=== PATIENT | female | born 1990 | race Caucasian/White ===

== ENCOUNTER 2023-04-12 07:55 | Day surgery (SDC) | payer OTHER ==
[2023-04-12] MEDS ORDERED: Ringers Lactate 1,000 ML IV ONE (08:28)
[2023-04-12] MEDS ORDERED: SIMETHICONE 40 MG/ 0.6 ML ONE (09:45)
[2023-04-12] MEDS ORDERED: propofoL 200 MG/20 ML VIAL IV ONE ×2 (09:46)
[2023-04-12] MEDS ORDERED: LIDOCAINE 1% MPF 2 ML AMPULE ONE (09:46)
[2023-04-12 11:42] VITALS: BP 153/74; TEMP 97; O2SAT 99
== END 2023-04-12 11:15 | disposition home or self-care (01) ==
LOC: OR 07:55
PROVIDERS: ATTEND Internal Medicine Gastroenterology
PROC: 0DBP8ZX Excision of Rectum, Via Natural or Artificial Opening Endoscopic, Diagnostic (ICD-10-PCS; principal; 2023-04-12 09:15)
DX: K52.9 Noninfective gastroenteritis and colitis, unspecified (principal); K61.1 Rectal abscess; K62.89 Other specified diseases of anus and rectum; K92.1 Melena; I95.9 Hypotension, unspecified; F41.1 Generalized anxiety disorder; F31.9 Bipolar disorder, unspecified; G83.9 Paralytic syndrome, unspecified
CPT/HCPCS: 81025; 88305; 45380; J2704; J7120

== ENCOUNTER 2023-12-26 15:41 | Emergency (ER) | payer OTHER ==
[2023-12-26 17:24] LABS: Absolute Basophils 0.1 K/uL (0-0.5); Absolute Eosinophils 0.1 K/uL (0-0.5); Absolute Lymphocytes (CBC) 2.2 K/uL (0.7-4.9); Absolute Monocytes 1.3 K/uL (0.1-1.3); Absolute Neutrophil 6.4 K/uL (1.8-8.0); Basophils % 0.7 % (0-1.3); Eosinophils % 1.4 % (0-4.4); Hematocrit 24.7 % (36.0-45.0); MCH 28.4 pg (27.0-35.0); MCHC 32.4 g/dL (32.0-36.0); MCV 87.6 fL (80-100); MPV 7.1 fL (7.6-11.3); Monocytes % 13.1 % (3.3-12.3); Neutrophils % 62.8 % (41.7-73.7); Nucleated RBC Absolute Count 0.1 (0-0); Nucleated Red Blood Cells % 0.5 % (0-0); Platelets 314 thou/uL (152-406); RBC Red Blood Cell Count 2.82 M/uL (3.86-4.86); Red Cell Distribution Width 31.2 % (12.1-15.2)
[2023-12-26 17:36] LABS: ALT/SGPT 16 U/L (13-56); Alkaline Phosphatase 175 U/L (45-117); Anion Gap 6.8 mEq/L (5.0-15.0); BUN Blood Urea Nitrogen 6 mg/dL (7-18); Bicarbonate 30 mEq/L (21-32); Bilirubin Total 0.3 mg/dL (0.2-1.0); Glomerular Filtration Rate 138 ml/min (=/>90); Glucose Level 91 mg/dL (74-106); Potassium 3.8 mEq/L (3.5-5.1); Sodium Level 135 mEq/L (136-145)
[2023-12-26 17:37] LABS: AST/SGOT < 10 U/L (15-37); Albumin 2.3 g/dL (3.4-5.0); Albumin/Globulin Ratio 0.5 (1.1-1.8); Globulin 4.2 g/dL (2.3-3.5); Lipase 38 U/L (13-75); Protein, Total 6.5 g/dL (6.4-8.2)
[2023-12-26 18:03] LABS: Anisocytosis 3+; Blood Morphology Comment NOTED (NOT SEEN); Platelet Estimate ADEQ; White Blood Cell Scan OK (OK)
[2023-12-26 18:22] LABS: Renal Epithelial <5 /HPF (None Seen); Specific Gravity 1.006 (1.005-1.030); Specific Gravity 1.007 (1.005-1.030); Sqamous Epithelial <5 /HPF (None Seen); Urine Bacteria >50 /HPF (<20); Urine Bilirubin NEGATIVE (Negative); Urine Blood 3+ (Negative); Urine Clarity Extremely Turbid (Clear); Urine Color Light-Yellow (Yellow); Urine Culture Reflex Order REFLEXED; Urine Glucose NEGATIVE (Negative); Urine Ketones NEGATIVE (Negative); Urine Microscopic Reflex YN ORDER UMIC; Urine Nitrite NEGATIVE (Negative); Urine Protein TRACE (Negative); Urine Urobilinogen Normal (Normal); Urine WBC >50 /HPF (<5); Urine WBC Clump Occasional /HPF (None Seen); Urine pH 7.5 (5.0-7.0)
--- NOTE | 2023-12-26 19:17 | RAD REPORT ---
EXAM DESCRIPTION: CT - Abdomen Pelvis W Contrast - 12/26/2023 6:44 pm CLINICAL HISTORY: ABDOMINAL DISTENTION COMPARISON: Chest Abd Pelvis Wo Con dated 11/16/2023 TECHNIQUE: Thin cut axial CT imaging of the abdomen and pelvis was performed following intravenous a dministration of iodinated contrast. Multiplanar reformats were generated and reviewed. All CT scans are performed using dose optimization technique as appropriate and may include automated exposure control or mA/KV adjustment according to patient size. FINDINGS: No suspicious findings in the lung bases. Mild bibasilar atelectatic changes again noted. The liver shows stable hepatomegaly. Wedge-shaped heterogeneous hypoattenuating subcapsular region in the peripheral inferior right lobe was not discretely visualized previously and could relate to a re gion of differential enhancement. Spleen, adrenal glands, and pancreas show no suspicious findings. G allbladder is decompressed limiting evaluation. Symmetric renal function is seen with no hydronephrosis or suspicious renal mass. Left lower quadrant colostomy with adjacent parastomal hernia containing a segment of the transverse colon wall is stable. A small collection measuring 3.8 x 3.6 cm along the inferior margin of the cullen ia is stable although appears better demarcated today. No dilated bowel loops or bowel wall thickening. Sequelae of partial colectomy with Tone's pouch and left lower quadrant colostomy creation. No free air, free fluid or inflammatory stranding. Bilate ral inguinal small lymph nodes, mildly prominent, stable. Sacral decubitus ulcer again seen. No herni a, mass or other bulky lymphadenopathy. The urinary bladder is decompressed with Lorenzana catheter in pl noel. No suspicious bony findings. IMPRESSION: Parastomal hernia, with overall stable adjacent fluid collection measuring up to 3.8 cm at its inferior margin, suggesting a probable seroma. Otherwise stable findings including megaly. Wedge-shaped region of hypoenhancement along the peripher al right inferior liver lobe is nonspecific and may relate to transient enhancement differences. Sacral decubitus ulcer again seen. Mildly prominent inguinal lymph nodes without significant interval change, favored to be reactive.
--- NOTE | 2023-12-26 19:29 | ER ---
Nurse's Notes [facility] Name: Sejal Pierre Age: 33 yrs Sex: Female : 1990 Arrival Date: 12/26/2023 Time: 15:41 Bed 15 Private MD: Diagnosis: Leakage of urinary (indwelling) catheter;UTI/ Urinary tract infection, site not specified;Postprocedural seroma of a digestive system organ or structure following other procedure;Unilateral inguinal hernia, without obstruction or gangrene Presentation: 12/25 15:55 Chief complaint: EMS states: From [facility], refereed here rs5 by primary care for abdominal mass noted 4 days ago and for leaking urinary catheter. 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 Coronavirus screen: At this time, the client does not indicate any symptoms associated with coronavirus-19. Ebola Screen: No symptoms or risks identified at this time. Risk Assessment: Do you want to hurt yourself or someone else? Patient reports no desire to harm self or others. Onset of symptoms was December 26, 2023. 15:55 Method Of Arrival: EMS: [facility] rs5 15:55 Acuity: EMELIA 3 rs5 16:01 Initial Sepsis Screen: Does the patient meet any 2 criteria? No. Patient's initial rs5 sepsis screen is negative. Does the patient have a suspected source of infection? No. Patient's initial sepsis screen is negative. 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 - Infectious Disease History:: Denies. - Social history:: Smoking status: Patient denies any tobacco usage or history of. Screenin:47 [facility] ED Fall Risk Assessment (Adult) History of falling in the last 3 months, rs5 including since admission No falls in past 3 months (0 pts) Confusion or Disorientation No (0 pts) Intoxicated or Sedated No (0 pts) Impaired Gait No (0 pts) Mobility Assist Device Used No (0 pt) Altered Elimination No (0 pt) Score/Fall Risk Level 0 - 2 = Low Risk Oriented to surroundings, Maintained a safe environment. Abuse screen: Denies threats or abuse. Nutritional screening: No deficits noted. Tuberculosis screening: No symptoms or risk factors identified. Assessment: 15:44 General: Appears in no apparent distress. uncomfortable, Behavior is calm, cooperative. rs5 Pain: Denies pain. Neuro: Level of Consciousness is awake, alert, obeys commands, Oriented to person, place, time, situation. Cardiovascular: Patient's skin is warm and dry. Respiratory: Airway is patent Respiratory effort is even, unlabored, Respiratory pattern is regular, symmetrical. GI: Abdomen is round non-distended, Colostomy site is clean and dry. Ostomy appliance is intact. : Lorenzana in place to gravity drainage Urine is cloudy. EENT: No signs and/or symptoms were reported regarding the EENT system. Derm: Skin is intact, Skin is pink, warm \\T\\ dry. Musculoskeletal: Range of motion: intact in arms bilat pt states "i am a paraplegic and I can only move my arms, not my legs". 15:44 Reassessment: stage 3 sacral wound noted to sacrum. small wounds noted to tips of toes. rs5 swelling to lower extremities bilat . 16:52 Reassessment: Patient and/or family updated on plan of care and expected duration. Pain rs5 level reassessed. Patient is alert, oriented x 3, equal unlabored respirations, skin warm/dry/pink. 18:04 Reassessment: Patient and/or family updated on plan of care and expected duration. Pain rs5 level reassessed. Patient is alert, oriented x 3, equal unlabored respirations, skin warm/dry/pink. 19:00 Reassessment:. General: Appears in no apparent distress. Behavior is calm, cooperative. al5 Pain: Denies pain. Neuro: Level of Consciousness is awake, alert, obeys commands, Oriented to person, place, time, situation. Cardiovascular: Patient's skin is warm and dry. Respiratory: Airway is patent Respiratory effort is even, unlabored, Respiratory pattern is regular, symmetrical. GI: Abdomen is round non-distended, Colostomy site is clean and dry. is intact. : Lorenzana in place to gravity drainage Urine is cloudy. EENT: No signs and/or symptoms were reported regarding the EENT system. Derm: Skin is intact, Skin is pink, warm \\T\\ dry. normal. Musculoskeletal: No signs and/or symptoms reported regarding the musculoskeletal system. 19:48 Reassessment: gave nurse to nurse report to TAWANA patino at [place] [id number] about discharge home. pending discharge upon EMS arrival. 20:34 Reassessment: ems arrived, patient discharge back to [facility] via [place] [id number] [facility]. Vital Signs: 16:01 BP 101 / 53; Pulse 80; Resp 18; Temp 98.5; Pulse Ox 95% on R/A; rs5 16:55 BP 105 / 56; Pulse 93; Resp 17; Pulse Ox 94% on R/A; rs5 18:48 BP 99 / 51; Pulse 90; Resp 17; Pulse Ox 98% on R/A; rs5 19:30 BP 101 / 54; Pulse 86; Resp 16; Pulse Ox 96% on R/A; al5 20:34 BP 101 / 52; Pulse 85; Resp 16; Pulse Ox 97% on R/A; pc2 ED Course: 15:44 Patient arrived in ED. rs5 15:47 Mara Kyle MD is Attending Physician. gb1 15:47 Patient has correct armband on for positive identification. Placed in gown. Bed in low rs5 position. Call light in reach. Side rails up X2. 15:47 No provider procedures requiring assistance completed. rs5 15:54 Roland Cleveland RN is Primary Nurse. rs5 15:55 Inserted saline lock: 20 gauge in left antecubital area, using aseptic technique. Blood rs5 collected. Flushed with 10 mL NS. 15:56 Triage completed. rs5 17:58 Lorenzana cath inserted, using sterile technique, by ak, balloon inflated, to gravity zm drainage, returned cloudy urine. Patient tolerated well. 24 FR. 18:46 CT Abd/Pelvis - IV Contrast Only In Process Unspecified. EDMS 19:27 Lauri Shepard MD is Referral Physician. gb1 19:28 Dressings: replaced midline dressing to L upper arm using sterile technique, patient al5 tolerated well. 19:29 Arm band placed on right wrist. al5 19:29 Provided Education on: midline dressing change, processes and procedures. al5 19:50 IV discontinued, intact, bleeding controlled, No redness/swelling at site. Pressure al5 dressing applied, removed 20G LAC iv. Administered Medications: No medications were administered Medication: 16:33 VIS not applicable for this client. rs5 Output: 20:34 Urine: 300ml (Voided); Total: 300ml. pc2 Outcome: 19:28 Discharge ordered by . gb1 20:34 Discharged to home via ambulance, al5 20:34 Condition: good 20:34 Discharge instructions given to patient, Instructed on discharge instructions, follow up and referral plans. medication usage, Demonstrated understanding of instructions, follow-up care, medications, Prescriptions given X 1, 20:35 Patient left the ED. al5 Signatures: Dispatcher [employer] EDMS Cristy Shepard Ricky, RN RN rs5 Mara Kyle MD MD gb1 Denise Cox RN RN al5 Perla Alcantara, RN RN pc2 Corrections: (The following items were deleted from the chart) 16:04 15:55 Chief complaint: EMS states: [facility] [place] [facility] refereed rs5 here by primary care for abdominal mass noted 4 days ago rs5 16:04 16:04 PMHx: osteomylitis of vertebra; rs5 rs5 16:04 16:04 PSHx: None; rs5 rs5 16:56 16:01 BP 101 / 53; Pulse 80bpm; Resp 18bpm; Pulse Ox 99% RA; Temp 98.5F; rs5 rs5 19:53 19:48 Reassessment: gave nurse to nurse report to TAWANA patino at [address] about discharge home. al5
--- NOTE | 2023-12-26 19:29 | EDPHYS ---
Physician Documentation [facility] Name: Sejal Pierre Age: 33 yrs Sex: Female : 1990 Arrival Date: 12/26/2023 Time: 15:41 Bed 15 Private MD: ED Physician Mara Kyle HPI: 12/25 19:14 This 33 yrs old Female presents to ER via EMS with complaints of ABDOMINAL gb1 MASS, LEAKING URINARY CATHETHER. 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 - Infectious Disease History:: Denies. - Social history:: Smoking status: Patient denies any tobacco usage or history of. Exam: 19:14 Constitutional: This is a well developed, well nourished patient who is awake, alert, gb1 and in no acute distress. Head/Face: Normocephalic, atraumatic. Eyes: Pupils equal round and reactive to light, extra-ocular motions intact. Lids and lashes normal. Conjunctiva and sclera are non-icteric and not injected. Cornea within normal limits. Periorbital areas with no swelling, redness, or edema. ENT: Nares patent. No nasal discharge, no septal abnormalities noted. Tympanic membranes are normal and external auditory canals are clear. Oropharynx with no redness, swelling, or masses, exudates, or evidence of obstruction, uvula midline. Mucous membranes moist. Neck: Trachea midline, no thyromegaly or masses palpated, and no cervical lymphadenopathy. Supple, full range of motion without nuchal rigidity, or vertebral point tenderness. No Meningismus. Chest/axilla: Normal chest wall appearance and motion. Nontender with no deformity. No lesions are appreciated. Cardiovascular: Regular rate and rhythm with a normal S1 and S2. No gallops, murmurs, or rubs. Normal PMI, no JVD. No pulse deficits. Respiratory: Lungs have equal breath sounds bilaterally, clear to auscultation and percussion. No rales, rhonchi or wheezes noted. No increased work of breathing, no retractions or nasal flaring. Abdomen/GI: Soft, tender, with normal bowel sounds. Mild tender distension around colostomy site (with formed brown stool). + guarding at area of distension, no rebound. Female : +urinary catheter is leaking foul smelling urine Skin: Warm, dry with normal turgor. Normal color with no rashes, no lesions, and no evidence of cellulitis. Vital Signs: 16:01 BP 101 / 53; Pulse 80; Resp 18; Temp 98.5; Pulse Ox 95% on R/A; rs5 16:55 BP 105 / 56; Pulse 93; Resp 17; Pulse Ox 94% on R/A; rs5 18:48 BP 99 / 51; Pulse 90; Resp 17; Pulse Ox 98% on R/A; rs5 19:30 BP 101 / 54; Pulse 86; Resp 16; Pulse Ox 96% on R/A; al5 20:34 BP 101 / 52; Pulse 85; Resp 16; Pulse Ox 97% on R/A; pc2 MDM: 15:47 Patient medically screened. gb1 19:14 Data reviewed: vital signs, nurses notes, lab test result(s), CBC, electrolytes, gb1 urinalysis, radiologic studies, CT scan. 19:24 ED course: 33-year-old female here with history of paraplegia, colostomy with gb1 indwelling Lorenzana catheter here with left lower quadrant pain around her colostomy site. There appears to be an area that is herniated but also with a seroma surrounding the inferior aspect of the colostomy. I recommend general surgery outpatient evaluation for follow-up. Patient also has a UTI and I will prescribe antibiotics. I will review the patient's urine culture and try to tailor antibiotics based on the last sensitivities. Patient does not at this time appear septic or show any signs of peritonitis. I reviewed the patient's urine culture from November of last year and it shows colonies of mixed abdulkadir. I will prescribe Keflex Bactrim for the patient's UTI and give her explicit return precautions. She is afebrile and at this time I doubt acute pyelonephritis or infected ureteral stone.. 12/25 17:00 Order name: CBC with Diff; Complete Time: 18:31 gb1 12/25 17:00 Order name: CMP; Complete Time: 17:48 gb1 12/25 17:00 Order name: Lipase; Complete Time: 17:48 gb1 12/25 17:00 Order name: Test, Urine; Complete Time: 18:31 gb1 12/25 17:00 Order name: Urinalysis w/ reflexes; Complete Time: 18:31 gb1 12/25 19:20 Interpretation: Within normal limits. gb1 12/25 17:29 Order name: CBC Smear Scan; Complete Time: 18:31 EDGA 12/25 18:29 Order name: Urine Culture EDGA 12/25 17:00 Order name: CT Abd/Pelvis - IV Contrast Only; Complete Time: 19:19 gb1 12/25 17:00 Order name: IV Saline Lock; Complete Time: 18:44 gb1 12/25 17:00 Order name: Labs collected and sent; Complete Time: 18:44 gb1 Administered Medications: No medications were administered Disposition Summary: 12/26/23 19:28 Discharge Ordered Notes: Location: Home gb1 Condition: Stable gb1 Diagnosis - Leakage of urinary (indwelling) catheter gb1 - UTI/ Urinary tract infection, site not specified gb1 - Postprocedural seroma of a digestive system organ or structure following other gb1 procedure - Unilateral inguinal hernia, without obstruction or gangrene gb1 Followup: gb1 - With: Lauri Shepard MD - When: - Reason: Recheck today's complaints Discharge Instructions: - Discharge Summary Sheet gb1 - Urinary Tract Infection, Adult gb1 Forms: - Medication Reconciliation Form gb1 - Antibiotic Education gb1 - Prescription Opioid Use gb1 - Patient Portal Instructions gb1 - Leadership Thank You Letter gb1 Prescriptions: - Bactrim DS 800-160 mg Oral Tablet - take 1 tablet ORAL route every 12 hours for 7 days; 14 tablet; Refills: 0, gb1 Product Selection Permitted Signatures: Dispatcher [employer] Roland Rosen RN RN rs5 Mara Kyle MD MD gb1 Corrections: (The following items were deleted from the chart) 16:04 16:04 PMHx: osteomylitis of vertebra; rs5 rs5 16:04 16:04 PSHx: None; rs5 rs5 17:01 17:01 CBC+H.LAB.BRZ ordered. EDMS EDMS 17:01 17:01 COMPREHENSIVE METABOLIC PANEL+C.LAB.BRZ ordered. EDMS EDMS 17:01 17:01 LIPASE+C.LAB.BRZ ordered. EDMS EDMS 17:01 17:01 Test, Urine+UC.LAB.BRZ ordered. EDMS EDMS 17:01 17:01 Urinalysis+U.LAB.BRZ ordered. EDMS EDMS 17:01 17:01 Abdomen Pelvis W Con+CT.RAD.BRZ ordered. EDMS EDMS 19:20 19:20 Within normal limits. gb1 gb1 19:20 19:20 Abnormal. gb1 gb1 19:30 19:24 ED course: 33-year-old female here with history of paraplegia, colostomy with gb1 indwelling Lorenzana catheter here with left lower quadrant pain around her colostomy site. There appears to be an area that is herniated but also with a seroma surrounding the inferior aspect of the colostomy. I recommend general surgery outpatient evaluation for follow-up. Patient also has a UTI and I will prescribe antibiotics. I will review the patient's urine culture and try to tailor antibiotics based on the last sensitivities. Patient does not at this time appear septic or show any signs of peritonitis.. gb1
[2023-12-26 21:12] VITALS: TEMP 98.5
[2023-12-26 21:20] VITALS: BP 101/52; O2SAT 97
== END 2023-12-26 20:35 | disposition home or self-care (01) ==
LOC: ER 15:41
DX: T83.038A Leakage of other urinary catheter, initial encounter (principal); N39.0 Urinary tract infection, site not specified; K91.873 Postprocedural seroma of a digestive system organ or structure following other procedure; K40.90 Unilateral inguinal hernia, without obstruction or gangrene, not specified as recurrent; G82.20 Paraplegia, unspecified
CPT/HCPCS: 87088; 85025; 81001; 87086; 36415; 81025; 83690; 80053; 74177; Q9967

== ENCOUNTER 2024-06-07 22:30 | Emergency (ER) | payer OTHER ==
[2024-06-07] MEDS ORDERED: ACETAMINOPHEN 650MG/RECT SUPP PR ONE (23:04)
[2024-06-07] MEDS ORDERED: HYDROCORTISONE SUC 100 MG INJ ONE (23:04)
[2024-06-07] MEDS ORDERED: FAMOTIDINE 20 MG/2 ML VIAL IV ONE (23:04)
[2024-06-07] MEDS ORDERED: VANCOMYCIN 1 GM/VIAL ONE (23:04)
[2024-06-07] MEDS ORDERED: NA CHLORIDE 0.9% 250 ML ONE (23:04)
[2024-06-07] MEDS ORDERED: VANCOMYCIN 500 MG/VIAL ONE (23:04)
[2024-06-07] MEDS ORDERED: NA CHLORIDE 0.9% 3,000 ML ONE (23:05)
[2024-06-07] MEDS ORDERED: NA CHLORIDE 0.9% 100 ML ONE (23:05)
[2024-06-07] MEDS ORDERED: Meropenem 1000 MG/VIAL IV ONE (23:07)
[2024-06-07 23:17] LABS: Absolute Lymphocytes (CBC) 0.7 K/uL (0.7-4.9); Absolute Monocytes 0.6 K/uL (0.1-1.3); Absolute Neutrophil 10.2 K/uL (1.8-8.0); Basophils % 0.2 % (0-1.3); Hematocrit 27.8 % (36.0-45.0); Lymphocytes % 6.3 % (15.3-44.8); MCH 29.7 pg (27.0-35.0); MCHC 32.5 g/dL (32.0-36.0); MCV 91.4 fL (80-100); MPV 7.2 fL (7.6-11.3); Monocytes % 5.3 % (3.3-12.3); Neutrophils % 88.2 % (41.7-73.7); Platelets 536 thou/uL (152-406); RBC Red Blood Cell Count 3.04 M/uL (3.86-4.86); Red Cell Distribution Width 17.9 % (12.1-15.2)
[2024-06-07 23:28] LABS: PTT, Activated Partial Thromb 38.6 SECONDS (24.3-36.9); Protime INR 1.53
[2024-06-07 23:34] LABS: SARS-CoV-2 Antigen CONTROL BLUE LINE VIS/BG OK; SARS-CoV-2 Antigen Rapid Res Negative (Negative)
[2024-06-07 23:45] LABS: AST/SGOT 11 U/L (15-37); Alkaline Phosphatase 165 U/L (45-117); Anion Gap 10.9 mEq/L (5.0-15.0); BUN Blood Urea Nitrogen 6 mg/dL (7-18); Bicarbonate 25 mEq/L (21-32); Bilirubin Direct 0.2 mg/dL (0-0.2); Bilirubin Indirect, Calculated 0.1 mg/dL (0.2-0.8); Bilirubin Total 0.3 mg/dL (0.2-1.0); Glomerular Filtration Rate 133 ml/min (=/>90); Glucose Level 98 mg/dL (74-106); Lipase 8 U/L (13-75); Magnesium 1.8 mg/dL (1.6-2.4); NT PRO-BNP 1411 pg/mL (<125); Potassium 2.9 mEq/L (3.5-5.1); Protein, Total 4.5 g/dL (6.4-8.2); Sodium Level 138 mEq/L (136-145)
[2024-06-07 23:55] LABS: ALT/SGPT < 14 U/L (13-56); Albumin < 0.9 g/dL (3.4-5.0); Albumin/Globulin Ratio ND (1.1-1.8); Globulin 3.6 g/dL (2.3-3.5); Troponin High Sensitivity < 3.0 pg/mL (<58.9)
--- NOTE | 2024-06-08 01:48 | EDPHYS ---
Physician Documentation [facility] Name: Sejal Pierre Age: 34 yrs Sex: Female : 1990 Arrival Date: 06/07/2024 Time: 22:30 Bed 4 Private MD: ED Physician Suraj Palencia HPI: 06/08 01:36 This 34 yrs old Female presents to ER via EMS with complaints of Fever, preethi Altered Mental Status. 01:36 The patient reports fever, that was measured at 103 degrees Fahrenheit. Onset: The preethi symptoms/episode began/occurred yesterday. Modifying factors: there are no obvious modifying factors. Associated signs and symptoms: Pertinent positives: cough, nausea. Severity of symptoms: At their worst the symptoms were severe in the emergency department the symptoms are unchanged. 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 22:57 unknown bm8 Historical: - Allergies: 22:40 Codeine; bm8 22:40 Latex; bm8 - Home Meds: 22:40 ascorbic acid (vitamin C) 500 mg oral tablet 1 tabs 2 times per day [Active]; aspirin bm8 81 mg Oral capsule 1 cap daily [Active]; baclofen 20 mg Oral tablet 1 tab 3 times per day [Active]; buspirone 10 mg Oral tablet 2 tabs 2 times per day for generalized anxiety disorder [Active]; docusate sodium 100 mg Oral tablet 1 tabs daily [Active]; ferrous sulfate 325 mg (65 mg iron) Oral tablet 1 tab 2 times per day for iron deficiency anemia [Active]; fluticasone propionate 50 mcg/actuation intranasal spray, suspension 1 spray daily [Active]; lactulose 10 gram/15 mL Oral solution 15 mL daily [Active]; pregabalin 150 mg Oral capsule 1 cap 3 times per day [Active]; midodrine 5 mg oral tablet 3 tab q6hrs for symptomatic orthostatic hypotension [Active]; mirtazapine 15 mg Oral tablet 2 tabs daily [Active]; norethindrone (contraceptive) 0.35 mg oral tablet 1 tab daily [Active]; nystatin 100,000 unit/gram Topical cream 1 application 2 times per day [Active]; omeprazole 20 mg Oral capsule,delayed release (e.c.) 1 caps daily [Active]; Zofran 1 tab Oral 4 mg every 6 hours [Active]; oxycodone-acetaminophen 10-325 mg Oral tablet 1 tab every 8 hours for pain [Active]; Risperdal 1 mg Oral tablet 1 tab every day at bedtime [Active]; spironolactone 25 mg Oral tablet 1 tab daily [Active]; zinc sulfate 50 mg zinc (220 mg) Oral tablet 1 tab daily [Active]; - PMHx: 22:40 Anxiety; Gastroesophageal reflux disease; Hypertensive disorder; Hypokalemia; morbid bm8 obesity; osteomylitis of vertebra; osteomylitis of vertebra; osteomylitis of vertebra; osteomylitis of vertebra; Paraplegia; osteomylitis of vertebra; - PSHx: 22:40 back surgery; bm8 - Immunization history:: Adult Immunizations unknown. - Infectious Disease History:: unk. - Social history:: Smoking status: Patient denies any tobacco usage or history of. Patient/guardian denies using alcohol, street drugs. ROS: 06/08 01:37 Cardiovascular: Positive for palpitations, preethi Respiratory: Positive for cough, shortness of breath, at rest. Abdomen/GI: Positive for abdominal pain, nausea, vomiting, MS/extremity: Positive for swelling, of the right leg and left leg, Skin: Positive for pallor, Neuro: Positive for altered mental status, weakness, Exam: 01:38 Head/Face: Normocephalic, atraumatic. Eyes: Pupils equal round and reactive to light, preethi extra-ocular motions intact. Lids and lashes normal. Conjunctiva and sclera are non-icteric and not injected. Cornea within normal limits. Periorbital areas with no swelling, redness, or edema. ENT: Nares patent. No nasal discharge, no septal abnormalities noted. Tympanic membranes are normal and external auditory canals are clear. Oropharynx with no redness, swelling, or masses, exudates, or evidence of obstruction, uvula midline. Mucous membranes moist. Neck: Trachea midline, no thyromegaly or masses palpated, and no cervical lymphadenopathy. Supple, full range of motion without nuchal rigidity, or vertebral point tenderness. No Meningismus. Chest/axilla: Normal chest wall appearance and motion. Nontender with no deformity. No lesions are appreciated. Abdomen/GI: Soft, non-tender, with normal bowel sounds. No distension or tympany. No guarding or rebound. No evidence of tenderness throughout. MS/ Extremity: Pulses equal, no cyanosis. Neurovascular intact. Full, normal range of motion., bilateral aka Psych: Awake, alert, with orientation to person, place and time. Behavior, mood, and affect are within normal limits. 01:38 Constitutional: The patient appears febrile, 01:38 Cardiovascular: Rate: tachycardic, actual rate is 120 bpm, Rhythm: regular, Pulses: Pulses are 3+ in bilateral radial, brachial, femoral, popliteal, posterior tibial and and dorsalis pedis arteries.. Heart sounds: normal, Edema: is not appreciated, JVD: is not appreciated, :38 ECG was reviewed by the Attending Physician. :41 Back: normal spinal alignment noted, preethi :41 Skin: cellulitis, that is mild, that is moderate, induration, that is mild is noted, injury, DECUBITUS STAGE 3 , INFECTED, Vital Signs: 06/07 22:37 BP 83 / 45; Pulse 102; Resp 19; Temp 102.2(A); Pulse Ox 99% on 2 lpm NC; Weight 97.98 bm8 kg; Height 5 ft. 6 in. ; Pain 0/10; 06/08 01:19 BP 79 / 65; Pulse 100; Resp 19; Temp 98.5(A); Pulse Ox 100% on R/A; Pain 0/10; bm8 01:40 BP 119 / 80; Pulse 106; Resp 24; Temp 98.5; Pulse Ox 99% ; Pain 0/10; bm8 02:20 BP 137 / 94; Pulse 86; Resp 18; Temp 98.5; Pulse Ox 100% on R/A; Pain 0/10; bm8 02:30 BP 80 / 38; Pulse 83; Resp 21; Temp 98.5; Pulse Ox 97% ; Pain 0/10; bm8 03:00 BP 92 / 48; Pulse 90; Resp 17; Temp 98.5; Pulse Ox 97% ; Pain 0/10; bm8 03:20 BP 98 / 50; Pulse 90; Resp 14; Temp 98.5; Pulse Ox 98% on R/A; Pain 0/10; bm8 03:51 BP 97 / 45; Pulse 91; Resp 16; Temp 98.5; Pulse Ox 99% on R/A; Pain 0/10; bm8 04:04 BP 91 / 49; Pulse 91; Resp 16; Temp 98.5; Pulse Ox 99% on R/A; 8 06/07 22:37 Body Mass Index 34.86 (97.98 kg, 167.64 cm) 8 06/07 22:37 Pain Scale: Adult bm8 06/08 01:19 Pain Scale: Adult bm8 01:40 Pain Scale: Adult bm8 02:20 Pain Scale: Adult bm8 02:30 Pain Scale: Adult bm8 03:00 Pain Scale: Adult bm8 03:20 Pain Scale: Adult bm8 03:51 Pain Scale: Adult bm8 [place] Coma Score: 01:19 Eye Response: to voice(3). Motor Response: localizes pain(5). Verbal Response: bm8 confused(4). Total: 12. 03:51 Eye Response: to voice(3). Motor Response: obeys commands(6). Verbal Response: bm8 confused(4). Total: 13. 04:04 Eye Response: to voice(3). Motor Response: obeys commands(6). Verbal Response: bm8 confused(4). Total: 13. Procedures: 01:43 Central Line: the site was prepped with Betadine, in sterile fashion, a triple lumen preethi catheter was inserted, in the right femoral vein, in 5 attempts. placement was verified, by blood return, the site was dressed with Tegaderm, using sterile technique, the patient tolerated the procedure, well. MDM: 06/07 22:32 Medical Screening Exam initiated [facility] 06/08 01:39 Differential diagnosis: viral Infection, bacterial infection, URI, bronchitis, preethi pneumonia UTI, urinary tract infection. Differential Diagnosis altered mental status, sepsis, flu. Data reviewed: vital signs, nurses notes, EMS record, lab test result(s), EKG, radiologic studies, CT scan, plain films. Consideration of Admission/Observation Escalation of care including admission/observation considered. I considered the following discharge prescriptions or medication management in the emergency department Medications were administered in the Emergency Department. See MAR. Independent interpretation of the following test(s) in the Emergency Department EKG: See my EKG interpretation above. Test considered but Not performed: Ultrasound NO ABD USG. Historians other than the Patient: EMS: EMS WELL INFORMED. Care significantly affected by the following chronic conditions: Hypertension, Obesity, GERD, HYPOKALEMIA. Post IV fluid administration reassessment for Sepsis: Client prescribed 30 mL/kg IVF. Sepsis focused reassessment complete. Counseling: I had a detailed discussion with the patient and/or guardian regarding the historical points, exam findings, and any diagnostic results supporting the discharge/admit diagnosis, lab results, radiology results, the need to transfer to another facility, for higher level of care, [facility] does not immediately have the required specialist. 06/07 22:33 Order name: Basic Metabolic Panel; Complete Time: 06/07 22:33 Order name: CBC with Diff; Complete Time: 06/07 22:33 Order name: LFT's; Complete Time: 06/07 22:33 Order name: Magnesium; Complete Time: 06/07 22:33 Order name: NT PRO-BNP; Complete Time: 06/07 22:33 Order name: PT-INR; Complete Time: 06/07 22:33 Order name: Troponin HS; Complete Time: 06/07 22:33 Order name: Lipase; Complete Time: 06/07 22:33 Order name: Flu; Complete Time: 06/07 22:33 Order name: SARS RAPID; Complete Time: 06/07 22:33 Order name: Ptt, Activated; Complete Time: 06/07 22:33 Order name: Blood Culture Adult (2) 06/07 22:33 Order name: Lactate w/ 2H reflex if indic.; Complete Time: 06/07 22:33 Order name: XRAY Chest (1 view) 06/07 22:44 Order name: CT Chest Abdomen Pelvis W/O Contrast 06/07 22:33 Order name: EKG; Complete Time: :34 06/07 22:33 Order name: Cardiac monitoring; Complete Time: 02:56 06/07 22:33 Order name: EKG - Nurse/Tech; Complete Time: 02:56 06/07 22:33 Order name: IV Saline Lock; Complete Time: 02:56 06/07 22:33 Order name: Labs collected and sent; Complete Time: 02:56 06/07 22:33 Order name: O2 Per Protocol; Complete Time: 02:56 [facility] 06/07 22:33 Order name: O2 Sat Monitoring; Complete Time: 02:56 [facility] 06/07 22:44 Order name: Central Line Kit; Complete Time: 02:55 preethi 06/07 22:44 Order name: Central Line Dressing Kit; Complete Time: 02:55 [facility] EC:38 Rate is 103 beats/min. Rhythm is regular. QRS [place] is Normal. UT interval is normal. [facility] QRS interval is normal. QT interval is normal. No Q waves. T waves are Normal. No ST changes noted. Clinical impression: Sinus tachycardia and No evidence of ischemia. Interpreted by me. Reviewed by me. Administered Medications: 06/07 23:00 Drug: Acetaminophen UT Suppository 650 mg UT once Route: UT; 8 06/08 02:36 Follow up: Response: No adverse reaction [facility] 06/07 23:35 Drug: NS 0.9% IV (30 ml/kg) 30 ml/kg IV at bolus once; Sepsis Protocol; to be given as bm8 a bolus over 90 minutes Route: IV; Rate: bolus; Site: right femoral; 06/08 02:37 Follow up: Response: No adverse reaction; IV Status: Completed infusion; IV Intake: bm8 2950ml 01:27 Drug: vancoMYCIN IVPB 1.5 grams IVPB at calculated rate once Route: IVPB; Rate: bm8 calculated rate; Site: right femoral; 03:30 Follow up: Response: No adverse reaction; IV Status: Completed infusion; IV Intake: bm8 250ml 01:28 Drug: Famotidine IVP 20 mg IVP once; dilute with 10 mL 0.9% NaCl; give over 2 minutes bm8 Route: IVP; Site: right femoral; 02:36 Follow up: Response: No adverse reaction bm8 01:28 Drug: Solu-CORTEF IVP 100 mg IVP once Route: IVP; Site: right femoral; bm8 02:36 Follow up: Response: No adverse reaction bm8 01:32 Drug: Famotidine IVP 20 mg IVP once; dilute with 10 mL 0.9% NaCl; give over 2 minutes bm8 Route: IVP; Site: right femoral; 02:36 Follow up: Response: No adverse reaction 8 01:33 Drug: Meropenem IV 1 grams IV at per protocol once; (mix in NS 100 mL) Route: IV; Rate: bm8 per protocol; Site: right femoral; 02:37 Follow up: Response: No adverse reaction; IV Status: Completed infusion; IV Intake: bm8 100ml 02:51 Drug: Norepinephrine IV 0.1 mcg/kg/min IV at calculated rate See Administration bm8 Instructions; (Standard concentration 4 mg / 250 mL D5W); Recommended max rate 3 mcg/kg/min; Titrate 0.05 mcg/kg/min as often as every 5 minutes to achieve goal (see titration policy); Goal parameter MAP greater than 65 mmHg. Route: IV; Rate: calculated rate; Site: right femoral; 03:52 Follow up: Response: No adverse reaction; IV Status: Infusion continued upon transfer bm8 Disposition Summary: 06/08/24 01:48 Transfer Ordered Notes: Transfer Location: [facility] preethi Reason: Higher level of care preethi Condition: Critical preethi Problem: new preethi Symptoms: have improved preethi Accepting Physician: TO ICU [facility](06/08/24 05:25) lg3 Diagnosis - Severe sepsis with septic shock preethi - Hypotension, unspecified preethi - Elevated white blood cell count preethi - Hypokalemia preethi - Cystitis, unspecified with hematuria preethi - Fever, unspecified preethi - Pressure ulcer of buttock - SACRAL STAGE 3, Osteomyleitis Sacral(06/08/24 05:25) preethi - Osteomyelitis, unspecified preethi Forms: - Medication Reconciliation Form preethi - SBAR form preethi Signatures: Dispatcher [employer] EDSuraj Hendricks MD MD cha Able, Lacie RN RN lg3 Isauro Small RN RN bm8 Corrections: (The following items were deleted from the chart) 06/07 22:34 22:34 BASIC METABOLIC PANEL+C.LAB.BRZ ordered. EDMS EDMS 22:34 22:34 CBC+H.LAB.BRZ ordered. EDMS EDMS 22:34 22:34 HEPATIC FUNCTION+C.LAB.BRZ ordered. EDMS EDMS 22:34 22:34 MAGNESIUM+C.LAB.BRZ ordered. EDMS EDMS 22:34 22:34 PROBNP+C.LAB.BRZ ordered. EDMS EDMS 22:34 22:34 PROTIME (+INR)+COAG.LAB.BRZ ordered. EDMS EDMS 22:34 22:34 Troponin High Sensitivity+C.LAB.BRZ ordered. EDMS EDMS 22:34 22:34 LIPASE+C.LAB.BRZ ordered. EDMS EDMS 22:34 22:34 Influenza Screen (A \T\ B)+BA.LAB.BRZ ordered. EDMS EDMS 22:34 22:34 SARS-COV-2 Antigen Rapid+I.LAB.BRZ ordered. EDMS EDMS 22:34 22:34 PTT, ACTIVATED+COAG.LAB.BRZ ordered. EDMS EDMS 22:34 22:34 BLOOD CULTURE*+BA.LAB.BRZ ordered. EDMS EDMS 22:34 22:34 LACTATE+C.LAB.BRZ ordered. EDMS EDMS 22:44 22:44 TYPE AND SCREEN+BB.LAB.BRZ ordered. EDMS EDMS 06/08 04:22 01:48 TO ICU [place] [id number] 05:25 01:48 Pressure ulcer of buttock - SACRAL STAGE 3 [facility] 05:25 04:22 TO ICU [address] 05:25 05:25 TO ICU [facility] lg3
--- NOTE | 2024-06-08 01:48 | ER ---
Nurse's Notes [facility] Name: Sejal Pierre Age: 34 yrs Sex: Female : 1990 Arrival Date: 06/07/2024 Time: 22:30 Bed 4 Private MD: Diagnosis: Pressure ulcer of buttock-SACRAL STAGE 3, Osteomyleitis Sacral;Severe sepsis with septic shock;Hypotension, unspecified;Elevated white blood cell count;Hypokalemia;Cystitis, unspecified with hematuria;Fever, unspecified;Osteomyelitis, unspecified Presentation: 06/07 22:37 Chief complaint: EMS states: called for AMS since 1800, pt has become very lethargic, bm8 low bp in 60's systolic. started levophed at 37.5mcg/min. 22 g LAC fever of 103 at facility. Coronavirus screen: Client denies travel out of the [place] in the last 14 days. Ebola Screen: Patient negative for fever greater than or equal to 101.5 degrees Fahrenheit, and additional compatible Ebola Virus Disease symptoms Patient denies exposure to infectious person. Patient denies travel to an Ebola-affected area in the 21 days before illness onset. No symptoms or risks identified at this time. Initial Sepsis Screen: Does the patient meet any 2 criteria? Temp <36.0*C (96.8*F)) or > 38.3*C (100.9*F). Systolic BP < 90 mmHg. Altered Mental Status. HR > 90 bpm. Yes Does the patient have a suspected source of infection? No. Patient's initial sepsis screen is negative. Risk Assessment: Do you want to hurt yourself or someone else? Patient reports no desire to harm self or others. Onset of symptoms was June 07, 2024 at 18:00. 22:37 Method Of Arrival: EMS: [facility] bm8 22:37 Acuity: EMELIA 2 bm8 Triage Assessment: 22:40 General: Appears in no apparent distress. obese, well nourished, Behavior is drowsy, bm8 flat. Pain: Denies pain. EENT: No deficits noted. No signs and/or symptoms were reported regarding the EENT system. Neuro: Level of Consciousness is obeys commands, lethargic, Oriented to person. Cardiovascular: Denies chest pain, Capillary refill < 3 seconds in bilateral fingers Patient's skin is warm and dry. Rhythm is sinus tachycardia. Respiratory: Airway is patent Respiratory effort is even, unlabored, Respiratory pattern is regular, symmetrical, Breath sounds are clear bilaterally. GI: Abdomen is round distended, Colostomy site is reddened. Ostomy appliance is intact. Bowel sounds present X 4 quads. : Barrett in place to gravity drainage Urine is tea colored. Derm: Skin with poor turgor sacral wound connected to suction vac, necrotic toe on right foot 3rd toe. Skin is pale, Skin temperature is hot. Musculoskeletal: pt is parapalegic. 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 bm8 Historical: - Allergies: 22:40 Codeine; bm8 22:40 Latex; bm8 - Home Meds: 22:40 ascorbic acid (vitamin C) 500 mg oral tablet 1 tabs 2 times per day [Active]; aspirin bm8 81 mg Oral capsule 1 cap daily [Active]; baclofen 20 mg Oral tablet 1 tab 3 times per day [Active]; buspirone 10 mg Oral tablet 2 tabs 2 times per day for generalized anxiety disorder [Active]; docusate sodium 100 mg Oral tablet 1 tabs daily [Active]; ferrous sulfate 325 mg (65 mg iron) Oral tablet 1 tab 2 times per day for iron deficiency anemia [Active]; fluticasone propionate 50 mcg/actuation intranasal spray, suspension 1 spray daily [Active]; lactulose 10 gram/15 mL Oral solution 15 mL daily [Active]; pregabalin 150 mg Oral capsule 1 cap 3 times per day [Active]; midodrine 5 mg oral tablet 3 tab q6hrs for symptomatic orthostatic hypotension [Active]; mirtazapine 15 mg Oral tablet 2 tabs daily [Active]; norethindrone (contraceptive) 0.35 mg oral tablet 1 tab daily [Active]; nystatin 100,000 unit/gram Topical cream 1 application 2 times per day [Active]; omeprazole 20 mg Oral capsule,delayed release (e.c.) 1 caps daily [Active]; Zofran 1 tab Oral 4 mg every 6 hours [Active]; oxycodone-acetaminophen 10-325 mg Oral tablet 1 tab every 8 hours for pain [Active]; Risperdal 1 mg Oral tablet 1 tab every day at bedtime [Active]; spironolactone 25 mg Oral tablet 1 tab daily [Active]; zinc sulfate 50 mg zinc (220 mg) Oral tablet 1 tab daily [Active]; - PMHx: 22:40 Anxiety; Gastroesophageal reflux disease; Hypertensive disorder; Hypokalemia; morbid bm8 obesity; osteomylitis of vertebra; osteomylitis of vertebra; osteomylitis of vertebra; osteomylitis of vertebra; Paraplegia; osteomylitis of vertebra; - PSHx: 22:40 back surgery; bm8 - Immunization history:: Adult Immunizations unknown. - Infectious Disease History:: unk. - Social history:: Smoking status: Patient denies any tobacco usage or history of. Patient/guardian denies using alcohol, street drugs. Screenin/31 01:19 [facility] ED Fall Risk Assessment (Adult) History of falling in the last 3 months, bm8 including since admission No falls in past 3 months (0 pts) Confusion or Disorientation Yes (5 pts) Intoxicated or Sedated No (0 pts) Impaired Gait Yes (1 pt) Mobility Assist Device Used Yes (1 pt) Altered Elimination Yes (1 pt) Score/Fall Risk Level 3 or more points = High Risk Oriented to surroundings, Maintained a safe environment, Educated pt \T\ family on fall prevention, incl call for assistance when getting out of bed, Assessed \T\ reinforced patient's understanding of fall precautions, Hourly rounding (assess needs \T\ fall precautionary measures) done, Used ambulatory aids as needed (educated on \T\ assisted with), Used gait belt as appropriate Implemented a Fall Risk Plan of Care. Abuse screen: Denies threats or abuse. Nutritional screening: No deficits noted. Tuberculosis screening: No symptoms or risk factors identified. Assessment: 01:19 Reassessment: Patient appears in no apparent distress at this time. Patient and/or bm8 family updated on plan of care and expected duration. Pain level reassessed. Patient denies pain at this time. General: Appears in no apparent distress. uncomfortable, Behavior is cooperative, appropriate for age. Pain: Denies pain. Neuro: Level of Consciousness is obeys commands, lethargic, Oriented to person. Cardiovascular: Heart tones S1 S2 present. Respiratory: Airway is patent Respiratory effort is even, unlabored, Respiratory pattern is regular, symmetrical. : [address] Barrett by several nurse. pt seems to have an anatomical issue and we have been unable to place barrett. provideer informed, pt placed of pur wic to help with staying dry. Derm: no change to previous wounds mentioned. 02:00 Reassessment: No changes from previously documented assessment. Patient and/or family bm8 updated on plan of care and expected duration. Pain level reassessed. Patient denies pain at this time. 03:00 Reassessment: Patient appears in no apparent distress at this time. No changes from bm8 previously documented assessment. Patient and/or family updated on plan of care and expected duration. Pain level reassessed. Patient denies pain at this time. 03:28 Reassessment: attempted to call and give report but was asked to call back in 5 mins. bm8 03:50 Reassessment: report given to tommy Erickson at [facility]. bm8 04:04 Reassessment: Patient appears in no apparent distress at this time. No changes from bm8 previously documented assessment. Patient and/or family updated on plan of care and expected duration. Pain level reassessed. [place] has arrived to transfer pt Patient denies pain at this time. Vital Signs: 06/07 22:37 BP 83 / 45; Pulse 102; Resp 19; Temp 102.2(A); Pulse Ox 99% on 2 lpm NC; Weight 97.98 bm8 kg; Height 5 ft. 6 in. ; Pain 0/10; 06/08 01:19 BP 79 / 65; Pulse 100; Resp 19; Temp 98.5(A); Pulse Ox 100% on R/A; Pain 0/10; bm8 01:40 BP 119 / 80; Pulse 106; Resp 24; Temp 98.5; Pulse Ox 99% ; Pain 0/10; bm8 02:20 BP 137 / 94; Pulse 86; Resp 18; Temp 98.5; Pulse Ox 100% on R/A; Pain 0/10; bm8 02:30 BP 80 / 38; Pulse 83; Resp 21; Temp 98.5; Pulse Ox 97% ; Pain 0/10; bm8 03:00 BP 92 / 48; Pulse 90; Resp 17; Temp 98.5; Pulse Ox 97% ; Pain 0/10; bm8 03:20 BP 98 / 50; Pulse 90; Resp 14; Temp 98.5; Pulse Ox 98% on R/A; Pain 0/10; bm8 03:51 BP 97 / 45; Pulse 91; Resp 16; Temp 98.5; Pulse Ox 99% on R/A; Pain 0/10; bm8 04:04 BP 91 / 49; Pulse 91; Resp 16; Temp 98.5; Pulse Ox 99% on R/A; bm8 06/07 22:37 Body Mass Index 34.86 (97.98 kg, 167.64 cm) bm8 06/07 22:37 Pain Scale: Adult bm8 06/08 01:19 Pain Scale: Adult bm8 01:40 Pain Scale: Adult bm8 02:20 Pain Scale: Adult bm8 02:30 Pain Scale: Adult bm8 03:00 Pain Scale: Adult bm8 03:20 Pain Scale: Adult bm8 03:51 Pain Scale: Adult bm8 [place] Coma Score: 01:19 Eye Response: to voice(3). Motor Response: localizes pain(5). Verbal Response: bm8 confused(4). Total: 12. 03:51 Eye Response: to voice(3). Motor Response: obeys commands(6). Verbal Response: bm8 confused(4). Total: 13. 04:04 Eye Response: to voice(3). Motor Response: obeys commands(6). Verbal Response: bm8 confused(4). Total: 13. ED Course: 06/07 22:31 Patient arrived in ED. rv1 22:32 Suraj Palencia MD is Attending Physician. preethi 22:36 Isauro Small, RN is Primary Nurse. bm8 22:40 Triage completed. bm8 22:57 Arm band placed on. bm8 22:59 XRAY Chest (1 view) In Process Unspecified. EDMS 22:59 Lactate w/ 2H reflex if indic. Sent. hw 23:00 Ptt, Activated Sent. hw 23:00 SARS RAPID Sent. hw 23:00 Flu Sent. hw 23:00 Lipase Sent. hw 23:00 Basic Metabolic Panel Sent. hw 23:00 CBC with Diff Sent. hw 23:00 LFT's Sent. hw 23:00 Magnesium Sent. hw 23:00 NT PRO-BNP Sent. hw 23:00 PT-INR Sent. hw 23:01 Troponin HS Sent. hw 23:01 Flu and/or RSV swab sent to lab. hw 23:01 EKG done, by ED staff. 23:30 Assisted provider with central line placement. Set up central line tray. Triple lumen bm8 line placed in right femoral. Line placed by Suraj Palencia MD Placement verified by blood return, Dressed with Tegaderm, Blood was collected. Patient tolerated well. Before procedure, did Practitioner(s) obtain informed consent? No. Patient \T\ family education about procedure, CLABSI prevention and S/S of infection? Yes. Time-out/Briefing performed prior to start of procedure? Yes. Was handwashing/sanitizing done immediately prior to procedure? Yes. Was patient positioned to in a way to prevent air embolism? Yes. Was procedure site sterilized? Yes, with chlorhexidine. Was the site allowed to dry? Yes. Was local anesthetic and/or sedation utilized? N/A. During the procedure, did the Practitioner(s) maintain a sterile field? Yes. Were unused ports clamped during insertion? Yes. Was a 2nd qualified MD obtained after 3 unsuccessful insertion attempts? No. Was blood aspirated from each lumen? Yes. After the procedure, did the Practitioner(s) clean the site and apply a sterile dressing? Yes. 23:30 Patient maintains SpO2 saturation greater than 95% on room air. bm8 06/08 01:19 Patient has correct armband on for positive identification. Bed in low position. Call bm8 light in reach. Side rails up X2. Client placed on continuous cardiac and pulse oximetry monitoring. NIBP monitoring applied. closing specialist on. Pulse ox on. NIBP on. Door closed. Noise minimized. Warm blanket given. Pillow given. Verbal reassurance given. Head of bed elevated. 01:19 Maintain EMS IV. Dressing intact. Good blood return noted. Site clean \T\ dry. Gauge \T\ bm 8 site: 22g LAC. Flushed with 10 mL NS. 02:00 Dr. Palencia initiated transfer with [facility] at [facility]. rv1 02:16 CT Chest Abdomen Pelvis W/O Contrast In Process Unspecified. EDMS 02:27 [facility] stated there are no ICU beds available at [facility] but rv1 would check with [facility]. Family notified and agreed if they have beds to transfer. 03:[address] Nguyen [address] [facility] to ICU bed 1. Report #[id number]. rv1 04:04 Provided Education on: need for transfer. bm8 04:04 Patient transferred, IV remains in place. bm8 Administered Medications: 06/07 23:00 Drug: Acetaminophen WI Suppository 650 mg WI once Route: WI; bm8 06/08 02:36 Follow up: Response: No adverse reaction bm8 06/07 23:35 Drug: NS 0.9% IV (30 ml/kg) 30 ml/kg IV at bolus once; Sepsis Protocol; to be given as bm8 a bolus over 90 minutes Route: IV; Rate: bolus; Site: right femoral; 06/08 02:37 Follow up: Response: No adverse reaction; IV Status: Completed infusion; IV Intake: bm8 2950ml 01:27 Drug: vancoMYCIN IVPB 1.5 grams IVPB at calculated rate once Route: IVPB; Rate: bm8 calculated rate; Site: right femoral; 03:30 Follow up: Response: No adverse reaction; IV Status: Completed infusion; IV Intake: bm8 250ml 01:28 Drug: Famotidine IVP 20 mg IVP once; dilute with 10 mL 0.9% NaCl; give over 2 minutes bm8 Route: IVP; Site: right femoral; 02:36 Follow up: Response: No adverse reaction bm8 01:28 Drug: Solu-CORTEF IVP 100 mg IVP once Route: IVP; Site: right femoral; bm8 02:36 Follow up: Response: No adverse reaction bm8 01:32 Drug: Famotidine IVP 20 mg IVP once; dilute with 10 mL 0.9% NaCl; give over 2 minutes bm8 Route: IVP; Site: right femoral; 02:36 Follow up: Response: No adverse reaction bm8 01:33 Drug: Meropenem IV 1 grams IV at per protocol once; (mix in NS 100 mL) Route: IV; Rate: bm8 per protocol; Site: right femoral; 02:37 Follow up: Response: No adverse reaction; IV Status: Completed infusion; IV Intake: bm8 100ml 02:51 Drug: Norepinephrine IV 0.1 mcg/kg/min IV at calculated rate See Administration bm8 Instructions; (Standard concentration 4 mg / 250 mL D5W); Recommended max rate 3 mcg/kg/min; Titrate 0.05 mcg/kg/min as often as every 5 minutes to achieve goal (see titration policy); Goal parameter MAP greater than 65 mmHg. Route: IV; Rate: calculated rate; Site: right femoral; 03:52 Follow up: Response: No adverse reaction; IV Status: Infusion continued upon transfer bm8 Medication: 01:19 VIS not applicable for this client. bm8 Intake: 02:37 IV: 100ml; Total: 100ml. bm8 02:37 IV: 2950ml; Total: 3050ml. bm8 03:30 IV: 250ml; Total: 3300ml. bm8 Outcome: 01:48 ER care complete, transfer ordered by . [facility] 04:04 Transferred by ground EMS to [facility], [facility], Transfer form completed. bm8 Note: pt transferred to [facility]ICU 04:21 critical bm8 04:21 Instructed on follow up and referral plans. the need for transfer, Demonstrated understanding of instructions, follow-up care, medications, 04:22 Patient left the ED. bm8 05:25 Patient left the ED. lg3 Signatures: Dispatcher [employer] EDMS Suraj Palencia MD MD cha Able, Lacie, RN RN lg3 Aleyda Little rv1 Isauro Samll, RN RN bm8 Ebony Qiu Corrections: (The following items were deleted from the chart) 01:28 01:27 vancoMYCIN IVPB 1.5 grams IVPB at calculated rate in left femoral bm8 bm8 02:55 02:55 Norepinephrine IV 9.798 mcg/min IV at calculated rate in right femoral bm8 bm8 03:25 03:00 BP 98 / 50; Pulse 90bpm; Resp 14bpm; Pulse Ox 98% RA; Temp 98.5F; Pain 0/10, bm8 Adult; bm8
[2024-06-08] MEDS ORDERED: NOREPINEPHRINE BITARTRATE/D5W 4 MG/250 ML BAG IV ONE (02:48)
--- NOTE | 2024-06-08 03:45 | RAD REPORT ---
EXAM: CT Chest, Abdomen and Pelvis Without Intravenous Contrast CLINICAL HISTORY: Congestion; Cough; Abdominal distention; Pain; Swelling TECHNIQUE: Axial computed tomography images of the chest, abdomen and pelvis without intravenous contrast. Sag ittal and coronal reformatted images were created and reviewed. This CT exam was performed using one or more of the following dose reduction techniques: automated exposure control, adjustment of t he mA and/or kV according to patient size, and/or use of iterative reconstruction technique. COMPARISON: CT Chest Abdomen Pelvis dated 11/16/2023 FINDINGS: CHEST: Lungs: Patchy right upper lobe reticular nodular opacities. Linear bibasilar subsegmental atelectas is/pleural parenchymal scar. Pleural space: Small bilateral pleural effusions. No pneumothorax. Heart: Unremarkable. No cardiomegaly. No significant pericardial effusion. No significant cor onary artery calcifications. ABDOMEN: Liver: The liver is enlarged. Gallbladder and bile ducts: Unremarkable. No calcified stones. No ductal dilation. Pancreas: Unremarkable. No ductal dilation. Spleen: The spleen is mildly enlarged. Adrenals: Unremarkable. No mass. Kidneys and ureters: Mild fullness of the left renal collecting system with perinephric stranding. No calculi. Stomach and bowel: Postsurgical changes of the left colon with a left abdominal colostomy and overs ewn rectosigmoid colon. There is a moderate parastomal hernia containing large bowel. No mucosal thickening. PELVIS: Appendix: Normal caliber appendix. No findings to suggest acute appendicitis. Bladder: The urinary bladder is decompressed. No stones. Reproductive: Unremarkable as visualized. CHEST, ABDOMEN and PELVIS: Intraperitoneal space: Unremarkable. No significant fluid collection. No free air. Bones/joints: Posttraumatic and postsurgical changes at the upper thoracic spine. There is absenc e of the distal sacrum and coccyx with progressive bone loss at the S3 level. Interval sclerotic changes and mild bone loss at the right iliac bone adjacent to the SI joint and mild widening of the right sacroiliac joint. Interval progression of sclerotic changes and bone loss at the left greater than right ischial tuberosity and the left inferior pubic ramus. No acute fracture. No dislocatio n. Soft tissues: Small fat-containing umbilical hernia. Large decubitus ulcer extending to the bone at the level of the distal sacrum increased in size. Additional decubitus ulcers at the level of the ischial tuberosities bilaterally and extending to the level of the bone on the left. Vasculature: Unremarkable. No aortic aneurysm. Lymph nodes: Unremarkable. No enlarged lymph nodes. Tubes, lines and devices: Right femoral venous catheter terminates in the common iliac vein. IMPRESSION: 1. Patchy right upper lobe infiltrates. 2. Small bilateral pleural effusions. 3. Mild fullness of the left renal collecting system with perinephric stranding. No renal, ureteral or bladder calculi. Please correlate clinically for urinary tract infection. 4. Large decubitus ulcer extending to the bone at the level of the distal sacrum increased in size with new involvement of the right SI joint. Additional decubitus ulcers at the level of the ischial tuberosities bilaterally and extending to the level of the bone on the left. Interval progression of osteomyelitis at the level of the distal sacrum, on both sides of the right SI joint and the left greater than right ischial tuberosity and left inferior pubic ramus. 5. Other findings as above. Electronically signed by: Shea Parrish MD 06/08/2024 03:42 AM [facility] Due to temporary technical issues with the PACS/[employer] reporting system, reports are being venus d by the in-house radiologist without review as a courtesy to ensure prompt reporting the interpreting radiologist is fully responsible for the content of the report. Transcribed Date/Time: 06/08/2024 3:45 AM
[2024-06-08 10:15] VITALS: TEMP 98.5
[2024-06-08 10:23] VITALS: O2SAT 99
[2024-06-08 10:25] VITALS: BP 91/49
--- NOTE | 2024-06-08 19:22 | RAD REPORT ---
EXAM: Chest Single View HISTORY: CONGESTION COMPARISON: 11/18/2023 FINDINGS: LUNGS/PLEURA: The lungs are clear. No pleural effusions or pneumothorax. No pulmonary edema. MEDIASTINUM: The mediastinal silhouette is within normal limits. CARDIAC: The cardiac silhouette is within normal limits. UPPER ABDOMEN: No significant abnormality. BONES: No acute abnormality. Fusion hardware in the lower cervical and upper thoracic spine. Likely s hrapnel overlying the upper thoracic spine. LINES/TUBES/OTHER: N/A IMPRESSION: No evidence of acute cardiopulmonary disease.
== END 2024-06-08 05:25 | disposition short-term general hospital (02) ==
LOC: ER 22:30
DX: N30.91 Cystitis, unspecified with hematuria (principal); R65.21 Severe sepsis with septic shock; M86.9 Osteomyelitis, unspecified; I95.9 Hypotension, unspecified; E87.6 Hypokalemia; L89.153 Pressure ulcer of sacral region, stage 3; I10 Essential (primary) hypertension; F41.9 Anxiety disorder, unspecified; Z11.52 Encounter for screening for COVID-19
CPT/HCPCS: 96365; 96367; 87040 ×2; 85025; 80048; 36415; 83735; 87205 ×2; 85610; 80076; 83605; 85730; 87077 ×2; 87186 ×2; 84484; 83690; 83880; 87804 ×2; 71250; 74176; 71045; 96375; 99285; 36556; 87811; J2185; J1720; J7050; J7030